=== PATIENT | female | born 1955 | race Caucasian/White ===

== ENCOUNTER 2018-09-06 11:38 | Day surgery (SDC) | payer BC ==
[2018-09-06] MEDS ORDERED: Dexamethasone TAB* 4 MG PO ONE (11:42)
[2018-09-06] MEDS ORDERED: Buffered Lidocaine 1% SYRIN* 1 ML/SYRINGE INTRADERM ONE (11:42)
[2018-09-06] MEDS ORDERED: Famotidine IV* 10 MG/ML 2 ML (20 mg) IV ONE (11:42)
[2018-09-06] MEDS ORDERED: Ondansetron INJ* 2 MG/ML VIAL ONE (11:42)
[2018-09-06] MEDS ORDERED: Ondansetron ODT TAB* 4 MG ONE (11:55)
[2018-09-06] MEDS ORDERED: Famotidine IV* 10 MG/ML 2 ML (20 mg) ONE (11:55)
[2018-09-06] MEDS ORDERED: Dexamethasone TAB* 4 MG ONE (11:55)
[2018-09-06] MEDS ORDERED: Lactated Ringers 1000 ML Bag* 1,000 ML IV SCH (12:00)
[2018-09-06] MEDS ORDERED: ceFAZolin 2 GM PREMIX in ORs 2 GM/50 ML BAG IVPB ONE (12:17)
[2018-09-06] MEDS ORDERED: Clindamycin 900 MG/D5W BAG(*) 900 MG/50 ML BAG IVPB ONE (12:36)
[2018-09-06] MEDS ORDERED: fentaNYL* 50 MCG/ML 2 ML VIAL (100 MCG VIAL) ONE (12:41)
[2018-09-06] MEDS ORDERED: Midazolam* 1 MG/ML 5 ML VIAL (5 MG) ONE (12:41)
[2018-09-06] MEDS ORDERED: Bupivacaine 0.5%* 50 ML VIAL ONE ×2 (12:57→16:19)
[2018-09-06] MEDS ORDERED: Naloxone* 0.4 MG/ML 1 ML VIAL IV PRN (15:55)
[2018-09-06] MEDS ORDERED: PROCHLORPERAZINE INJ 5 MG/ML 2 ML VIAL IV PRN (15:55)
[2018-09-06] MEDS ORDERED: oxyCODONE/Acetamin 5/325 MG* TAB PO PRN (15:55)
[2018-09-06] MEDS ORDERED: DiMENhydriNATE IV* 50 MG/ML VIAL IV PUSH PRN (15:55)
[2018-09-06] MEDS ORDERED: Morphine VIAL* 4 MG/ML VIAL (1 ml vial) IV PRN (15:55)
[2018-09-06] MEDS ORDERED: fentaNYL* 50 MCG/ML 2 ML VIAL (100 MCG VIAL) IV PRN (15:55)
[2018-09-06] MEDS ORDERED: Bupivacaine 0.25% SDV PF* 10 ML VIAL INJ ONE (16:17)
[2018-09-06] MEDS ORDERED: Ketorolac INJ* 30 MG/ML 1 ML VIAL ONE (16:25)
[2018-09-06] MEDS ORDERED: ROPIVACAINE 5 MG/ML 30 ML BTL (0.5%) ONE (16:25)
[2018-09-06] MEDS ORDERED: Propofol* 10 MG/ML 20 ML BTL ONE (16:25)
[2018-09-06] MEDS ORDERED: Lidocaine 2% PF * 5 ML VIAL ONE (16:25)
[2018-09-06] MEDS ORDERED: PROCHLORPERAZINE INJ 5 MG/ML 2 ML VIAL ONE (16:25)
[2018-09-06 18:21] VITALS: BP 122/77
--- NOTE | 2018-09-06 23:05 | OP ---
DATE OF OPERATION: 09/06/18 [facility] DATE OF : 53 SURGEON: Abdirashid Moreira MD POLICE STENOGRAPHER: SHARI Bernard ANESTHESIOLOGIST: Dr. Perry. ANESTHESIA: General with infraclavicular block. PRE-OP DIAGNOSIS: Right displaced coronoid fracture. POST-OP DIAGNOSIS: Right displaced coronoid fracture. OPERATIVE PROCEDURE: Open reduction and internal fixation of right coronoid process intra-articular elbow fracture. INDICATIONS: Bianka is 63 years old. She had a fall and fractured the coronoid process; it is displaced and comminuted. We had talked about her treatment options and risks and benefits and she wanted to proceed with the surgery. ESTIMATED BLOOD LOSS: 20 mL. COMPLICATIONS: None. FINDINGS: See above and below. DESCRIPTION OF PROCEDURE: Bianka was seen in the preoperative holding area. The correct side, site, and procedure were identified. We came back to the operating room, the arm was prepped and draped in the usual fashion and time- out was performed. The arm was exsanguinated with the Esmarch and the tourniquet was inflated to 250 mmHg. The arm was abducted and externally rotated and a curvilinear incision was made over the posteromedial elbow. Dissection was carried down and a flap was raised off of the fascia overlying the cubital tunnel and off of the flexor pronator fascia. I went ahead and released the ulnar nerve in its entirety from proximal to distally. I placed a Lori drain around the nerve and performed a neurolysis so that I could easily transpose and retract the nerve throughout the case in order to keep it safe. At the proximal aspect of the dissection, I did have an injury to the medial antebrachial cutaneous nerve. This was noted and we returned to repair that later. I then palpated the supinator crest and then I released the soft tissue anterior to that to expose the proximal ulnar as well as my coronoid fracture. The flexor pronator mass was partially released off the medial epicondyle and the flexor pronator muscular mass was retracted out of the way to expose the proximal ulna. There was an anteromedial facet piece as well as a more lateral piece which had a large extension down the shaft. Once I had cleaned up the fracture edges and prepared the fracture and removed 1 intraarticular loose osteocartilaginous fragment, I was able to then reduce both of the main fracture fragments with a clamp and with K-wires. I then brought in my [employer] precontoured coronoid plate, this was bent and contoured to match the shape for particular coronoid process. This was then placed as our buttress plate and the first screw was placed right at the apex of the curvature, pulling the plate down to bone, this was a cortical screw. I then was able to place 2 locking screws up into the proximal fragment. Another distal screw was placed. At this point, I thought that was adequate fixation for that portion of the fracture. More radially, there was a long spike that did extend distally quite a bit. I had this reduced with a pointed reduction clamp. I wanted to add on additional stabilization aside from the buttress plate for this fragment and so I placed a 2.7 mm cortical screw into that piece from anterior to posterior. This had excellent purchase and really held that piece down nicely. Additionally I had enough bone proximally on my anteromedial facet piece and I wanted to secure my fixation with some additional fixation and so I went ahead and placed a guidewire for a 2.5 mm headless compression screw. This was then overdrilled with a 1.9 mm drill bit and then countersunk and measured, and I went ahead and placed a headless compression screw in standard fashion. This generated additional extra compression across the anteromedial fragment and further stabilized my fixation. At this point, the fixation was looking excellent. The elbow was very stable. I went ahead and placed a Mitek suture anchor into the footprint of the flexor pronator mass on the medial epicondyle. This was used to repair the flexor pronator mass back down to the bone. This provided an excellent repair. The lateral ulnar collateral ligament looked good, so I do not think I needed to provide an additional repair there. I repaired the FCU fascia proximally with a couple of 2-0 Vicryl sutures. I excised my medial intermuscular septum as well as the leading edge of the humeral head of the FCU muscle and then I was able to transpose the nerve into a nice subcutaneous position. Lastly, I did go ahead and just repaired end to end the two edges of the medial antebrachial cutaneous nerve proximally. This was done under 3.5x loupe magnification, I got a very nice end-to-end repair. At this point, everything was looking good. So, I irrigated up the wound. The tourniquet was let down at 150 minutes of tourniquet time. The hemostasis was obtained with the Bovie. I went ahead and sewed my proximal flexor pronator fascia to the subcutaneous tissue grabbing a little bit of dermis on the undersurface of the skin to keep my nerve in the transposed position. The subcutaneous tissue was then reapproximated with 3-0 Vicryl and the skin was closed with 4-0 nylon suture. Some additional Marcaine was infiltrated all around the operative area, although she had had the infraclavicular block using ropivacaine. The wounds were dressed with Xeroform, 4x4s, sterile Webril and a long arm splint was applied with the elbow in about 70 or 80 degrees of flexion. After the splint was applied, she was then taken to the recovery room in stable condition. [id number]/CPS #: [id number] JESISKA
== END 2018-09-06 18:23 | disposition home or self-care (01) ==
LOC: OR 11:38
PROVIDERS: ATTEND Orthopaedic Surgery Hand Surgery
DX: S52.041A Displaced fracture of coronoid process of right ulna, initial encounter for closed fracture (principal); W00.9XXA Unspecified fall due to ice and snow, initial encounter; Y92.9 Unspecified place or not applicable; Z72.0 Tobacco use; G89.18 Other acute postprocedural pain
CPT/HCPCS: 76000; A9270-GY; C1713; J0690; J0780; J1885; J2250; J2704; J2795; J3010; J3490; J8540

== ENCOUNTER 2018-09-21 09:38 | Emergency (ER) | payer BC ==
--- OUTSIDE RECORDS SUMMARY | 2018-09-21 09:52 | XMS REPORT | Continuity of Care Document ---
:1955 Author Organization [facility] Support Name Relationship Address Phone YURY LACKEY spouse [address] [facility] [place] [phone] YURY LACKEY spouse [address] [facility] [place] [address] Allergies and Intolerances Code Code System Allergy Type Reaction Severity Start End Date Status Substance Date 13334 RXNorm Sulfa Drug Unknown Active (Sulfonamide allergy Antibiotics) (disorder) 85972 RXNorm penicillin Drug Unknown Active allergy (disorder) Medications RxNorm Medication Dose Route Instructions Start Date End Date Status 2968165 Acetaminophen 325 1 tab oral orally every 4 08/29/2018 Active MG / Oxycodone hours as needed. Hydrochloride 5 MG (as needed for Oral Tablet pain ...MDD=6 tabs) Bupropion (SR) Oral 150 mg oral orally 2 times per Active ER Tab day 546853 buspirone 5 mg oral orally 2 times per Active hydrochloride 5 MG day as needed. Oral Tablet Doxycycline Hyclate 100 mg oral orally 2 times per Active Oral day (10 days) 0608549 NITROFURANTOIN, 100 mg oral orally daily (must Active MACROCRYSTALS 25 MG administer with a / Nitrofurantoin, meal/food) Monohydrate 75 MG Oral Capsule Problems No Data in the system Procedures No data in the system Results Radiology Results Order: ELBOW COMPLETE RTExam Completion Date :08/29/2018 00: 12:35 AM RIGHT ELBOW X-RAYS CLINICAL INFORMATION : PAIN, UNSPECIFIED, -- PAIN, UNSPECIFIED COMPARISON: None. PROCEDURE : AP, lateral, and oblique projections of the right elbow were obtained. FINDINGS/IMPRESSION: Age indeterminate fracture of the coronoid process. Mild degenerative changes of the elbow joint. Moderate-sized joint effusion. Calcific tendinosis versus enthesopathic changes at the origin of the common flexor and common extensor. END OF IMPRESSION [facility] submits Radiology results to [facility] and [facility] then provides those same results to [facility]. All results are available to [facility] and [facility] provider portal users. [facility] DICOM images are available to the [facility] provider portal users only. [facility] DICOM images are not available to the [facility] provider portal users. There is no current [facility] cross-[facility] functionality allowing images to be available through the [facility] to [facility] connectivity. Electronically signed By: Leydi Fischer M.D., MBA, FACR Read By: LEYDI FISCHER Date: 08/29/2018 08:23 Social History Code Code System Social History Description Dates Observed Observation [id number] SNOMED [address] Current Smoking Current some day Status smoker UNK AdministrativeGender Sex Assigned At Unknown Vital Signs Code Code System Vitals Value Date 8310-5 LOINC Body Temperature 97.7 [degF] 08/28/2018 8865-8 LOINC Pulse Rate 104 {beats}/min 08/28/2018 9279-1 LOINC Respiratory Rate 16 /min 08/28/2018 85340-6 LOINC O2% BldC Oximetry 96 % 08/28/2018 8480-6 LOINC BP Systolic 133 mm[Hg] 08/28/2018 8462-4 LOINC BP Diastolic 75 mm[Hg] 08/28/2018 8302-2 LOINC Height 63 [in_i] 08/28/2018 05761-5 LOINC Weight 64 kg 08/28/2018 3140-1 LOINC Body surface area Derived from formula 1.67 m2 08/28/2018 80379-4 LOINC BMI (Body Mass Index) 24.9 kg/m2 08/28/2018 Goals Section No data in the system Health Concerns No data in the systemEncounter Diagnosis Date Code Code System Diagnosis Status S42.401A ICD10 UNS FX LOWER RT HUM INITIAL CLOS FX Active Advance Directives No Advance Directives Reported Family History No data in the system Functional Status Code Functional Condition Code System Date Status Independent adls SNOMED CT 08/29/2018 Active Appears well nourished/hydrated SNOMED CT 08/29/2018 Active Immunizations No data in the system Medical Equipment No data in the system Mental Status Code Cognitive Condition Code System Date Status Oriented x [address] 08/29/[address] 08/29/2018 Active Assessment and Plan Assessments No data in the systemPlan Of Treatment No data in the systemPending Tests No data in the system Hospital Discharge Instructions No data in the system Reason for Visit Reason for Visit Fall
--- OUTSIDE RECORDS SUMMARY | 2018-09-21 09:52 | XMS REPORT | Continuity of Care Document ---
:1955 External Reference #:[id number] Author Name Pati Peck Care Team Providers Name Role Phone Aviva Taylor, P.A. 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 Use Start: Unknown Patient is a current cigarette smoker, smokes some days Tobacco Use Start: Unknown Currently smokes 1-5 Cigarettes Daily ETOH Use consumes 5-6 glasses of wine per week Tobacco Use Start: Unknown Light tobacco smoker (10 or fewer cigarettes/day) Recreational Drug Use Denies Drug Use Exercise Type/Frequency Exercises at a health club 3 times a week Exercise Type/Frequency Exercises regularly Allergies, Adverse Reactions, Alerts Date Description Reaction Status Severity Comments 08/30/2018 Penicillin Dizziness, Rash, SOB Active 08/30/2018 Bactrim Difficulty breathing, Dizziness, Rash Active Medications Medication Date Status Form Strength Qnty SIG Indications Ordering Provider Bupropion HCL ER / Active Tablets ER 150mg 1 tab by Brandon, (Smoking Det) 0000 12HR mouth Aviva, daily P.A. Buspirone HCL / Active Tablets 10mg 1 tab by Brandon, 0000 mouth Aviva, daily P.A. Doxycycline / Active Capsules 100mg 1 cap Brandon, Hyclate 0000 daily by Aviva, mouth P.A. Oxycodone-Acetami / Active Tablets 5-325mg 1 tab as Unknown nophen 0000 needed Nitrofurantoin / Active Capsules 50mg 1 cap by Kamron Macrocrystal 0000 mouth Mahmoud, daily M.D. Vitamin D3 / Active Capsules 5000Unit one Unknown 0000 every daily Calcium 500 + D / Active Tablets 500-125mg- 1 by Unknown 0000 Unit mouth daily Immunizations Description No Information Available Vital Signs Date Vital Result Comment 08/30/2018 2:21pm Height 66.6 inches 5'6.60" Weight 145.00 lb Heart Rate 88 /min BP Systolic Sitting 130 mmHg R BP Diastolic Sitting 86 mmHg R Respiratory Rate 16 /min Pain Level 6 BMI (Body Mass Index) 23.0 kg/m2 Results Description No Information Available Procedures Date Code Description Status 08/30/2018 68236 Long Arm Splint Application Completed Encounters Description No Information Available Plan of Treatment 08/30/2018 - Juan Gagnon, MDS52.041A Displaced fracture of coronoid process of right ulna, initiaNew Xrays:CT Extremity Upper Right Wo, Ordered: Follow up:Follow up: Moreira after ct scan for orif
[2018-09-21 10:33] VITALS: BP 134/84
--- NOTE | 2018-09-21 10:42 | UC ---
Throat Pain/Nasal Kojo HPI - HPI Summary HPI Summary: sinus pain and pressure x 7 days nasal congestion , pnd, fever, chills, no cough - History of Current Complaint Chief Complaint: UCGeneralIllness Stated Complaint: SINUSES Time Seen by Provider: 09/21/18 10:30 Hx Obtained From: Patient Onset/Duration: Gradual Onset, Lasting Days - 7, Still Present Severity: Moderate Pain Intensity: 4 Cough: None Associated Signs & Symptoms: Positive: Sinus Discomfort, Nasal Discharge, Fever. Negative: Dysphagia, FB Sensation, Drooling, Wheezing, Hoarseness, Vomiting, Rash - Allergies/Home Medications Allergies/Adverse Reactions: Allergies Allergy/AdvReac Type Severity Reaction Status Date / Time Penicillins Allergy Hives Verified 09/21/18 10:29 sulfamethoxazole Allergy Hives Verified 09/21/18 10:29 [From Bactrim] trimethoprim [From Bactrim] Allergy Hives Verified 09/21/18 10:29 PMH/Surg Hx/FS Hx/Imm Hx Previously Healthy: Yes - Surgical History Surgical History: Yes Surgery Procedure, Year, and Place: 2 c-sections, right ankle 2009, right elbow surgery 09/06/18 - Family History Known Family History: Negative: Diabetes - Social History Alcohol Use: Weekly Substance Use Type: None Smoking Status (MU): Former Smoker When Did the Patient Quit Smoking/Using Tobacco: 08/28/18 Review of Systems All Other Systems Reviewed And Are Negative: Yes Constitutional: Positive: Fever, Chills, Fatigue Skin: Positive: Negative Eyes: Positive: Negative ENT: Positive: Nasal Discharge, Sinus Congestion, Sinus Pain/Tenderness Respiratory: Positive: Negative Cardiovascular: Positive: Negative Gastrointestinal: Positive: Negative Is Patient Immunocompromised?: No Physical Exam Triage Information Reviewed: Yes Appearance: Well-Appearing, No Pain Distress, Well-Nourished Vital Signs: Initial Vital Signs Temp 97.9 F 09/21/18 10:28 Pulse 76 09/21/18 10:28 Resp 15 09/21/18 10:28 BP 134/84 09/21/18 10:28 Pulse Ox 98 09/21/18 10:28 Vital Signs Reviewed: Yes Eyes: Positive: Conjunctiva Clear ENT Exam: Normal ENT: Positive: Normal ENT inspection, Hearing grossly normal, Pharynx normal, Nasal congestion, Sinus tenderness. Negative: Tonsillar swelling, Tonsillar exudate Neck: Positive: Supple, Nontender, No Lymphadenopathy Respiratory: Positive: Chest non-tender, Lungs clear, Normal breath sounds Cardiovascular: Positive: RRR, No Murmur, Pulses Normal Throat Pain/Nasal Course/Dx - Differential Dx/Diagnosis Provider Diagnosis: Sinusitis Discharge - Sign-Out/Discharge Documenting (check all that apply): Patient Departure All imaging exams completed and their final reports reviewed: No Studies - Discharge Plan Condition: Stable Disposition: HOME Prescriptions: DOXYcycline CAP(*) [DOXYcycline 100MG CAP(*)] 100 mg PO BID #20 cap Fluticasone NASAL SPRAY 50MCG* [Flonase NASAL SPRAY 50MCG*] 2 spray BOTH NARES DAILY #1 btl Patient Education Materials: Sinusitis (ED) Referrals: Aviva Taylor PA [Primary Care Provider] - If Needed - Billing Disposition and Condition Condition: STABLE Disposition: Home
== END 2018-09-21 10:45 | disposition home or self-care (01) ==
LOC: UCCORT 09:38
DX: J32.9 Chronic sinusitis, unspecified (principal); Z88.0 Allergy status to penicillin; Z88.2 Allergy status to sulfonamides; Z87.891 Personal history of nicotine dependence
CPT/HCPCS: 99212; G0463